=== PATIENT | female | born 1970 | race Caucasian/White ===

== ENCOUNTER 2018-11-03 05:57 | Day surgery (SDC) | payer BC ==
[~2018-11-03] VITALS: Ht 162.6 cm; Wt 88.2 kg
[2018-11-03 07:05] VITALS: Ht 162.6 cm; Wt 88.2 kg
[2018-11-03] MEDS ORDERED: DOXY100T20 PO (07:12)
[2018-11-03] MEDS ORDERED: ALBU18HF INHALATION (07:12)
[2018-11-03] MEDS ORDERED: HYDR12.58 PO (07:12)
[2018-11-03 07:30] VITALS: BP 130/71; PULSE 56; RESP 16
--- NOTE | 2018-11-03 07:52 | PREAC ---
Date/Time of Note Date/Time of Note DATE: 11/03/18 TIME: 07:50 Anesthesia Eval and Record Evaluation Time Pre-Procedure Interview DATE: 11/03/18 TIME: 07:50 Age 48 Sex female NPO: 8 hrs Preoperative diagnosis Abdominal Pain and rectal Bleeding Planned procedure Colonoscopy and EGD Past Medical History Past Medical History: Includes Pulm: Sleep Apnea, Home CPAP, Asthma GI: Obesity Heme: Anemia Surgery & Anesthesia Issues No known issue Meds Anticoagulation: No Beta Abdias within 24 hr: No Reason Beta Abdias not given: Pt. not on B-Abdias Reported Medications Albuterol Sulfate* (Ventolin HFA*) 18 Gm Hfa.aer.ad, 2 PUFF INHALATION Q6H for ASTHMA, #1 INHALER 11/03/18 Hydrochlorothiazide* (Hydrochlorothiazide*) 12.5 Mg Tablet, 12.5 MG PO BID, #60 TAB 11/03/18 Doxycycline Hyclate* (Doxycycline Hyclate*) 100 Mg Tablet.dr, 50 MG PO BID, TAB 11/03/18 Meds reviewed: Yes Allergies Coded Allergies: analilia (Verified Allergy, Severe, ANAPHYLACTIC SHOCK, 11/03/18) Allergies Reviewed: Yes Labs/Studies Labs Reviewed: Reviewed by anesthesiologist test: N/A Studies: ECG (n/a), CXR (n/a) Pre-procedure Exam Last vitals Vital Signs Date Temp Pulse Resp B/P (MAP) Pulse Ox O2 O2 Flow FiO2 Time Delivery Rate 11/03/18 97.8 56 16 130/71 97 Room Air 07:30 (90) Airway: Adequate mouth opening, Adequate thyromental dist Mallampati: Mallampati II Teeth: Normal Lung: Normal Heart: Normal ASA Physical Status ASA physical status: 2 Emergency: None Planned Anesthetic General/MAC: MAC Planned Pain Management Parenteral pain med Pre-operative Attestations Prior to commencing anesthesia and surgery, the patient was re-evaluated, there was verification of: *The patient's identity *The results of appropriate recent lab work and preoperative vital signs *The above evaluation not changing prior to induction *Anesthetic plan, risk benefits, alternative and complications discussed with patient/family; questions answered; patient/family understands, accepts and wishes to proceed. VICTORINA GERARD MD Nov 03, 2018 07:51
[2018-11-03] MEDS ORDERED: METOCLOPRAMIDE 10 MG INJ ONE (07:53)
[2018-11-03] MEDS ORDERED: ONDANSETRON 4 MG INJ ONE (07:53)
--- NOTE | 2018-11-03 08:16 | PAC ---
Date/Time of Note Date/Time of Note DATE: 11/03/18 TIME: 08:15 Post-Anesthesia Notes Post-Anesthesia Note Last documented vital signs Vital Signs Date Temp Pulse Resp B/P (MAP) Pulse Ox O2 O2 Flow FiO2 Time Delivery Rate 11/03/18 97.8 56 16 130/71 97 Room Air 08:30 (90) Activity: WNL Respiratory function: WNL Cardiovascular function: WNL Mental status: Baseline Pain reasonably controlled: Yes Hydration appropriate: Yes Nausea/Vomiting absent: Yes VICTORINA GERARD MD Nov 03, 2018 08:16
[2018-11-03] MEDS ORDERED: PROPOFOL 60 ML ONE (08:22)
[2018-11-03 08:43] VITALS: BP 112/62; PULSE 57; RESP 16
== END 2018-11-03 12:48 | disposition home or self-care (01) ==
LOC: SDS 05:57 → GIL 05:57
PROVIDERS: ATTEND Internal Medicine Gastroenterology
DX: Z12.11 Encounter for screening for malignant neoplasm of colon (principal); D12.4 Benign neoplasm of descending colon; J45.909 Unspecified asthma, uncomplicated; G47.30 Sleep apnea, unspecified
CPT/HCPCS: 43239; 45385; 88305; 88312; J2405; J2765; Z7610